=== PATIENT | female | born 1985 | race Caucasian/White ===

== ENCOUNTER 2018-05-02 21:49 | Emergency (ER) | payer OTHER ==
[2018-05-02 22:40] LABS: BASO # 0.1 10^3/uL (0.0-0.2); BASO % 0.4 % (0.0-1.0); EOS # 0.2 10^3/uL (0.0-0.50); EOS % 1.1 % (0.0-3.0); HEMATOCRIT 42.8 % (36.0-47.0); HEMOGLOBIN 14.3 g/dl (12.0-15.5); IMMATURE GRANULOCYTE % 0.4 % (0-3.0); LYMPH % 22.4 % (24.0-44.0); MEAN CORPUSCULAR HEMOGLOBIN 31.2 pg (27.0-33.0); MEAN CORPUSCULAR HGB CONC 33.4 g/dl (32.0-36.5); MEAN CORPUSCULAR VOLUME 93.4 fl (80.0-96.0); MONO # 0.8 10^3/uL (0.0-0.8); NEUTROPHILS # 9.5 10^3/uL (1.8-7.7); NEUTROPHILS % 69.7 % (36.0-66.0); PLATELET COUNT, AUTOMATED 304 10^3/uL (150-450); RED BLOOD COUNT 4.58 10^6/uL (4.00-5.40); RED CELL DISTRIBUTION WIDTH 11.8 % (11.5-14.5); WHITE BLOOD COUNT 13.6 10^3/uL (4.0-10.0)
[2018-05-02 22:43] LABS: APPEARANCE, URINE CLEAR (CLEAR); BACTERIA, URINE AUTO NEGATIVE (NEGATIVE); BILIRUBIN, URINE AUTO NEGATIVE (NEGATIVE); BLOOD, URINE BLOOD NEGATIVE (NEGATIVE); COLOR, URINE STRAW (YELLOW); GLUCOSE, URINE (UA) AUTO NEGATIVE (NEGATIVE); KETONE, URINE AUTO NEGATIVE (NEGATIVE); LEUKOCYTE ESTERASE, URINE AUTO NEGATIVE (NEGATIVE); NITRITE, URINE AUTO NEGATIVE (NEGATIVE); PROTEIN, URINE AUTO NEGATIVE (NEGATIVE); RBC, URINE AUTO 1 /HPF (0-3); SPECIFIC GRAVITY URINE AUTO 1.006 (1.002-1.035); SQUAMOUS EPITHELIAL CELL UR AU 0 /HPF (0-6); UROBILINOGEN, URINE AUTO 0.2 mg/dL (0.0-2.0); WBC, URINE AUTO 0 /HPF (0-3)
[2018-05-02] MEDS: KETOROLAC 30 MG/ML VIAL (J1885) IV (22:55)
[2018-05-02 23:05] LABS: ALBUMIN 3.8 GM/DL (3.2-5.2); ALBUMIN/GLOBULIN RATIO 1.12 (1.00-1.93); ALKALINE PHOSPHATASE 89 U/L (45-117); ALT/SGPT 13 U/L (12-78); AMYLASE 44 U/L (25-115); ANION GAP 5 MEQ/L (8-16); AST/SGOT 8 U/L (7-37); BILIRUBIN,TOTAL 0.2 MG/DL (0.2-1.0); BLOOD UREA NITROGEN 15 MG/DL (7-18); C REACTIVE PROTEIN QUANTITATIV < 0.30 MG/DL (0.00-0.30); CALCIUM LEVEL 8.7 MG/DL (8.5-10.1); CARBON DIOXIDE LEVEL 27 MEQ/L (21-32); CHLORIDE LEVEL 106 MEQ/L (98-107); CK-MB VALUE MASS < 1.0 NG/ML (<3.6); CPK CREATINE PHOSPHOKINASE 65 U/L (26-192); CREATININE FOR GFR 0.67 MG/DL (0.55-1.30); GLOMERULAR FILTRATION RATE > 60.0 (>60); GLUCOSE, FASTING 101 MG/DL (70-100); LIPASE 96 U/L (73-393); MB/CK RELATIVE INDEX 1.53 (< OR =4); POTASSIUM SERUM 4.1 MEQ/L (3.5-5.1); SODIUM LEVEL 138 MEQ/L (136-145); TOTAL PROTEIN 7.2 GM/DL (6.4-8.2); TROPONIN I < 0.02 NG/ML (< 0.10)
[2018-05-03] MEDS: GI COCKTAIL 50ML BTL(HYOSCYAMINE/MAALOX/LIDOCAINE VISCOUS)(1:3:1) PO (00:53)
[2018-05-03] MEDS: NORCO 5/325MG TABLET (BULK FOR ED) PO (01:31)
== END 2018-05-03 01:34 | disposition home or self-care (01) ==
LOC: M ED 21:49
DX: R10.13 Epigastric pain (principal); F17.200 Nicotine dependence, unspecified, uncomplicated; Z79.899 Other long term (current) drug therapy
CPT/HCPCS: J1885

== ENCOUNTER → 2018-05-29 | Outpatient (REF) ==
[2018-05-30 14:16] LABS: RUBEOLA IgG ANTIBODY >300.0 AU/mL (Immune >29.9)
== END ==
LOC: M LAB 13:29
DX: Z00.00 Encounter for general adult medical examination without abnormal findings (principal)

== ENCOUNTER → 2019-05-22 | Outpatient (CLI) | payer OTHER ==
[~2019-05-22] MED LIST: ZANA2CAP PO; mirena
--- NOTE | 2019-05-22 15:31 | REP ---
Right shoulder series: Three views. History: Pain. Comparison right shoulder radiographs are from August 14, 2006. Findings: The right glenohumeral and acromioclavicular joints are normally aligned. Periarticular soft tissues are unremarkable. No erosive changes seen. Impression: Negative radiographs of the right shoulder. Electronically Signed by Jessee Ochoa MD 05/22/2019 03:22 P
== END ==
LOC: M WUC 13:41
PROVIDERS: ATTEND Nurse Practitioner Adult Health
DX: M25.511 Pain in right shoulder (principal)

== ENCOUNTER 2019-06-08 10:27 | Outpatient (RCR) | payer OTHER | END 2019-06-11 | LOC: M PT 10:27 | PROVIDERS: ATTEND Nurse Practitioner Adult Health | DX: M25.511 Pain in right shoulder (principal) ==

== ENCOUNTER → 2019-07-30 | Outpatient (REF) | payer BC | LOC: M SFHCPLAZ 09:08 | PROVIDERS: ATTEND Internal Medicine Infectious Disease | DX: L02.31 Cutaneous abscess of buttock (principal) ==

== ENCOUNTER → 2019-07-31 | Outpatient (CLI) | payer BC ==
--- NOTE | 2019-07-31 10:26 | REP ---
ULTRASOUND LEFT BUTTOCKS SOFT TISSUES: Real-time sonographic evaluation of the left buttocks soft tissues performed at a site of induration. At that location, there is a hypoechoic area measuring 1.2 x 1.3 x 0.5 cm with an apparent tract to the skin. This appears to present a very small fluid collection. Electronically Signed by Frank Novoa MD 08/01/2019 10:29 A
== END ==
LOC: M RAD 09:34
PROVIDERS: ATTEND Internal Medicine Infectious Disease
DX: L02.31 Cutaneous abscess of buttock (principal)

== ENCOUNTER → 2019-08-06 | Outpatient (REF) | payer BC | LOC: M LAB REF 13:19 | PROVIDERS: ATTEND Surgery | DX: L72.3 Sebaceous cyst (principal) ==

== ENCOUNTER → 2020-01-10 | Outpatient (REF) | payer BC ==
[2020-01-10 18:33] LABS: BLOOD UREA NITROGEN 12 MG/DL (7-18); CALCIUM LEVEL 9.3 MG/DL (8.5-10.1); CARBON DIOXIDE LEVEL 25 MEQ/L (21-32); CHLORIDE LEVEL 108 MEQ/L (98-107); CREATININE FOR GFR 0.64 MG/DL (0.55-1.30); GLOMERULAR FILTRATION RATE > 60.0 (>60); GLUCOSE, FASTING 78 MG/DL (70-100); POTASSIUM SERUM 3.9 MEQ/L (3.5-5.1); SODIUM LEVEL 140 MEQ/L (136-145)
== END ==
LOC: M SFHCPLAZ 15:54
DX: M54.42 Lumbago with sciatica, left side (principal)

== ENCOUNTER → 2020-03-07 | Outpatient (CLI) | payer BC ==
[~2020-03-07] MED LIST changes: +CYCL-707 PO; +FIOR1CAP PO; +MIRE1IUD IU; +NAPR-885 PO; +NEUR300C PO; +OMEP40CA97 PO
== END ==
LOC: M LABSMTC 12:58
PROVIDERS: ATTEND Anesthesiology
DX: Z01.818 Encounter for other preprocedural examination (principal); Z11.59 Encounter for screening for other viral diseases
CPT/HCPCS: C9803; U0003

== ENCOUNTER 2020-03-10 06:20 | Day surgery (SDC) | payer BC ==
[~2020-03-10] VITALS: Ht 167.6 cm; Wt 65.2 kg
[~2020-03-10 06:20] MED LIST changes: +CelecoXIB 400 MG CAP PO SCH; +GABAPENTIN 300 MG CAP PO SCH; +LIDOCAINE 1% MDV 20ML VIAL SQ PRN; +LR 1,000 ML IV SCH; +PERCOCET 5MG/325MG TAB PO SCH
[2020-03-10] MEDS ORDERED: propofoL 200 MG/20 ML VIAL As Ordered ONE (07:10)
[2020-03-10] MEDS ORDERED: ONDANSETRON 4MG/2ML VIAL As Ordered ONE (07:10)
[2020-03-10] MEDS ORDERED: ROCURONIUM BROMIDE 50 MG/5 ML VIAL As Ordered ONE ×2 (07:10→08:18)
[2020-03-10] MEDS ORDERED: LIDOCAINE 2% 100MG/5ML SDV (FOR ANES.) As Ordered ONE (07:10)
[2020-03-10] MEDS ORDERED: fentaNYL 250 MCG/5 ML INJECTION (J3010) As Ordered ONE (07:10)
[2020-03-10] MEDS ORDERED: dexameTHASONE 4 MG/ML 1ML VIAL (J1100 PER 1MG) As Ordered ONE (07:10)
[2020-03-10] MEDS ORDERED: MIDAZOLAM INJ 2MG/2ML VIAL (J2250 PER 1MG) As Ordered ONE (07:10)
[2020-03-10] MEDS ORDERED: THROMBIN SOLN 20,000 UNITS KIT As Ordered ONE (07:22)
[2020-03-10] MEDS ORDERED: TRANEXAMIC ACID 100 MG/ML 10ML VIAL As Ordered ONE (07:22)
[2020-03-10] MEDS ORDERED: BUPIVACAINE HCL 0.25% 30ML VIAL As Ordered ONE (07:23)
[2020-03-10] MEDS ORDERED: EPINEPHrine INJ 1 MG/ML 1ML AMP As Ordered ONE (07:23)
[2020-03-10] MEDS ORDERED: BUPIVACAINE/EPIN 0.5% 30 ML VIAL As Ordered ONE (07:23)
[2020-03-10] MEDS ORDERED: BUPIVACAINE LIPOSOME/PF 1.3% 20ML VIAL (13.3MG/ML)(EXPAREL)(C9290 PER1MG) As Ordered ONE (07:24)
[2020-03-10] MEDS ORDERED: BACITRACIN PWD 50,000 UNITS VIAL As Ordered ONE ×2 (07:24→07:38)
[2020-03-10] MEDS ORDERED: BUPIVACAINE/EPIN 0.25% 30 ML VIAL As Ordered ONE (07:37)
[2020-03-10] MEDS: ceFAZolin SOD 1 GM in D5W MINI-BAG PLUS 50 ML IV SCH (07:56)
[2020-03-10] MEDS ORDERED: KETOROLAC 60MG 2ML VIAL As Ordered ONE (08:21)
[2020-03-10] MEDS ORDERED: SUGAMMADEX SODIUM 500 MG/5 ML VIAL (BRIDION) As Ordered ONE (08:21)
[2020-03-10] MEDS ORDERED: HYDROMORPHONE HCL 0.5 MG/ 0.5 ML SYRINGE (J1170 PER 1) As Ordered ONE (10:14)
[2020-03-10] MEDS: HYDROMORPHONE HCL 0.5 MG/ 0.5 ML SYRINGE (J1170 PER 1) IV PRN ×3 (10:15→10:46)
--- NOTE | 2020-03-10 10:15 | REP ---
LUMBAR SPINE: SINGLE VIEW. HISTORY: Left microdiscectomy. A single portably-obtained cross-table lateral view of the lumbar spine is presented time stamped 8:44 a.m. This radiograph demonstrates an operative probe aligned at the dorsal aspect of the L5-S1 disc space. An IUD is noted posteriorly in the pelvis, consistent with a retroverted uterus. Electronically Signed by Jessee Ochoa MD 03/10/2020 12:45 P
[2020-03-10] MEDS ORDERED: HYDROMORPHONE HCL 0.5 MG/ 0.5 ML SYRINGE (J1170 PER 1) IV PRN (10:30)
[2020-03-10] MEDS ORDERED: METOCLOPRAMIDE INJ 10MG/2ML VIAL (J2765 PER 1) IV PRN (10:30)
[2020-03-10] MEDS ORDERED: ONDANSETRON 4MG/2ML VIAL IV PRN (10:30)
[2020-03-10] MEDS ORDERED: fentaNYL 100 MCG/2 ML INJECTION (J3010) IV PRN (10:30)
[2020-03-10] MEDS ORDERED: oxyCODONE 5MG TAB PO PRN (10:30)
[2020-03-10] MEDS ORDERED: LR 1,000 ML IV SCH ×2 (10:30)
[2020-03-10 11:56] VITALS: BP 122/78
[2020-03-10] MEDS ORDERED: ceFAZolin SOD 1 GM in D5W MINI-BAG PLUS 50 ML IV ONE (12:00)
[2020-03-10] MEDS ORDERED: CelecoXIB (CeleBREX) 100 MG CAP PO ONE (13:45)
[2020-03-11] MEDS ORDERED: METAMUCIL (PSYLLIUM) PACKET PO SCH (09:00)
--- NOTE | 2020-03-12 14:12 | RO ---
DATE OF SURGERY: 03/10/2020 PREOPERATIVE DIAGNOSIS: Left lower extremity radiculopathy secondary to disc bulge at L5-S1. POSTOPERATIVE DIAGNOSIS: PROCEDURE PERFORMED: Microdiscectomy L5-S1, left. SURGEON: Maynor [employer] HEAT WELDER: ROWAN Hussein ANESTHESIA: General. COURT LIAISON. Dr. Cruz ESTIMATED BLOOD LOSS: Less than 30 mL. No complications. INDICATIONS: Months of discomfort radiating down the left lower extremity. MRI suggests left paracentral disc bulge at L5-S1. Patient has elected for operative intervention. Consent reviewed in detail including a meliza discussion of the pathology involved, the procedure proposed, alternatives including doing nothing and risks including but not limited to pain, failure, bleeding, blood loss, incomplete relief of symptoms, need for additional surgery, nerve injury, and other issues. The patient agrees to proceed. OPERATIVE COURSE: Identified in the holding area. Site side verified. Brought to the operating room. Once anesthesia was administered positioned on the Kirk frame for exposure of the lumbar spine. Axillary rolls were utilized. The Kirk frame was elevated. The knees were slightly flexed. Once I and the tin stacker were comfortable with the patient's positioning, she was then sterilely prepped, draped usual fashion using DuraPrep type solution by Ms. Castañeda. Next, time-out was accomplished. Next, the incision was infiltrated with 0.25% Marcaine with epinephrine based on palpation of bony landmarks. Next, I utilized 3.5 loupe magnification the beginning of the procedure as well as a headlamp. I stood on the left, Ms. Castañeda on the right. Incision was made using a 10-blade knife developed down through skin and subcuticular tissues to the posterior lumbar fascia. I split the posterior lumbar fascia sharply and then dissected off of the spinous process side using the curved osteotome over the L5 lamina exposing the L5-S1 interspace. I drilled a divot in the posterior lamina of L5 on the patient's left side and placed the Oviedo-Dorian. We then obtained a cross-table lateral x-ray to verify our level. I then utilized Jones-Gonzalez to remove some posterior lamina. My loupe and headlamp were removed and the operating microscope was then sterilely draped and it was brought in for additional portions of the procedure. I then utilized the high-speed bur to implement a left unilateral laminotomy of L4-5. Ms. Castañeda utilized the suction apparatus and retractors to assist with exposure. I elevated ligamentum flavum using curved curettes, removed it using #2 Kerrisons, decompressed the subarticular space using #2 Kerrisons as well as the curettes. Next, I appreciated impression on the traversing S1 nerve root likely from the medial border of the facet complex, which may have been hypertrophic. Next, I swept the traversing S1 nerve root medially with a O[place]iedo-Dorian. Utilized bipolar cautery for hemostasis. Appreciated significant hypertrophied epidural veins. Next, I then exposed disc. There seemed to be a subligamentous extruded portion. The posterior longitudinal ligament was opened with an 11-blade and this was removed using Birch pituitaries. I then opened the annulus itself and removed additional disc material. There was some hard disc component and that was further contoured using the high-speed bur and Ms. Castañeda holding the suction Natalia protecting the thecal sac. Next, once this was accomplished, irrigation was accomplished. I also placed tranexamic acid (TXA) solution and allowed it to stand for 1 minute. I inspected for bleeding. No active bleeding. No cerebrospinal fluid (CSF) leak. We removed all retractors. Closed the posterior lumbar fascia with interrupted stitch, deep dermis with interrupted stitch. Prineo dressing applied. Patient moved to the hospital bed, extubated and moved to recovery in good condition. For further details please refer to medical record.
== END 2020-03-10 14:17 | disposition home or self-care (01) ==
LOC: M SDC 06:20
PROVIDERS: ATTEND Orthopaedic Surgery
DX: M51.16 Intervertebral disc disorders with radiculopathy, lumbar region (principal); K21.9 Gastro-esophageal reflux disease without esophagitis; G43.909 Migraine, unspecified, not intractable, without status migrainosus; F17.218 Nicotine dependence, cigarettes, with other nicotine-induced disorders; Z79.899 Other long term (current) drug therapy
CPT/HCPCS: 36415; 63030; 76000; 81025; 86850; 86900; 86901; 88304; C1763; C9290; J0171; J0690; J1100; J1170; J1885; J2250; J2405; J3010

== ENCOUNTER → 2021-10-02 | Outpatient (CLI) | payer BC ==
[~2021-10-02] MED LIST changes: -CelecoXIB 400 MG CAP PO SCH; -GABAPENTIN 300 MG CAP PO SCH; -LIDOCAINE 1% MDV 20ML VIAL SQ PRN; -LR 1,000 ML IV SCH; +OMEP40CA4 PO; -OMEP40CA97 PO; -PERCOCET 5MG/325MG TAB PO SCH
== END ==
LOC: M PLARAD 12:58
PROVIDERS: ATTEND Orthopaedic Surgery
DX: M47.26 Other spondylosis with radiculopathy, lumbar region (principal)

== ENCOUNTER → 2022-06-15 | Outpatient (REF) | payer BC | LOC: M LAB REF 12:25 | PROVIDERS: ATTEND Nurse Practitioner Adult Health | DX: N76.4 Abscess of vulva (principal) ==

== ENCOUNTER → 2022-12-02 | Outpatient (REF) | payer BC | LOC: M LAB REF 17:35 | PROVIDERS: ATTEND Physician Assistant Medical | DX: J02.9 Acute pharyngitis, unspecified (principal) ==

== ENCOUNTER → 2023-07-28 | Outpatient (CLI) | payer BC | LOC: M RAD 08:18 | PROVIDERS: ATTEND Nurse Practitioner Family | DX: R10.2 Pelvic and perineal pain (principal); F52.6 Dyspareunia not due to a substance or known physiological condition ==

== ENCOUNTER → 2025-01-24 | Outpatient (CLI) | payer BC ==
[~2025-01-24] MED LIST changes: +ACET300T47 PO; +AIMO70IN; +ALPR0.25 PO; +BUPR150T12 PO; +GABA-284 PO; +MELO15TA28 PO; +OMEP-173 PO; +RIZA10TA58 PO; +TOPI-257 PO
== END ==
LOC: M WHC 13:06
PROVIDERS: ATTEND Obstetrics & Gynecology
DX: N93.9 Abnormal uterine and vaginal bleeding, unspecified (principal); N94.12 Deep dyspareunia; R10.2 Pelvic and perineal pain

== ENCOUNTER → 2025-07-30 | Outpatient (CLI) | payer BC | LOC: M WHC 06:37 | PROVIDERS: ATTEND Internal Medicine | DX: Z12.31 Encounter for screening mammogram for malignant neoplasm of breast (principal) ==

== ENCOUNTER → 2025-08-15 | Outpatient (CLI) | payer BC | LOC: M WHC 08:35 | PROVIDERS: ATTEND Internal Medicine | DX: R92.8 Other abnormal and inconclusive findings on diagnostic imaging of breast (principal) | CPT/HCPCS: 76642; 77065; G0279 ==